=== PATIENT | male | born 1980 | race Hispanic/Latino ===

== ENCOUNTER 2019-08-22 21:23 | Emergency (ER) | payer SELFPAY ==
[2019-08-22] MEDS ORDERED: ACETAMINOPHEN 325 MG TAB ONE (21:37)
== END 2019-08-22 22:25 | disposition home or self-care (01) ==
LOC: EDH 21:23
DX: S93.502A Unspecified sprain of left great toe, initial encounter (principal); F41.9 Anxiety disorder, unspecified; F20.9 Schizophrenia, unspecified; W22.8XXA Striking against or struck by other objects, initial encounter; Y93.89 Activity, other specified; Y92.098 Other place in other non-institutional residence as the place of occurrence of the external cause; Y99.8 Other external cause status
CPT/HCPCS: 73660

== ENCOUNTER 2025-06-14 09:50 | Emergency (ER) | payer SELFPAY ==
[~2025-06-14] VITALS: Ht 175.3 cm; Wt 81.6 kg
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
[2025-06-14 11:40] VITALS: BP 105/62; PULSE 60; RESP 16; TEMP 97.6; O2SAT 99
--- NOTE | 2025-06-14 11:50 | HMCIMG ---
EXAM: XR HAND COMPLETE, 3 PLUS VIEWS, LEFT. HISTORY: Fall. COMPARISON: None. TECHNIQUE: Three views of the left hand. FINDINGS: There is suggestion for subtle linear lucency involving the distal metaphysis of the radius extending into the radiocarpal joint space. Close clinical correlation as to whether this is an area of interest is recommended. If there are concerns for wrist fracture dedicated wrist series is recommended. Left hand demonstrates no acute fracture or dislocation. No significant osseous lesion is identified. No abnormal radiodense foreign body is seen in the soft tissues. IMPRESSION: Cannot entirely exclude a nondisplaced subtle fracture of the distal metaphysis of the radius. Recommend clinical correlation. If this area is of clinical concern recommend dedicated wrist series. Left hand series is otherwise unremarkable. /[place]
== END 2025-06-14 11:38 | disposition home or self-care (01) ==
LOC: EDH 09:50
DX: S66.912A Strain of unspecified muscle, fascia and tendon at wrist and hand level, left hand, initial encounter (principal); W01.0XXA Fall on same level from slipping, tripping and stumbling without subsequent striking against object, initial encounter; Y93.89 Activity, other specified; Y92.89 Other specified places as the place of occurrence of the external cause; Y99.8 Other external cause status
CPT/HCPCS: 29125; 73130; 99283